=== PATIENT | female | born 1965 | race Two or more races ===

== ENCOUNTER → 2019-04-11 | Outpatient (CLI) | payer OTHER | END | disposition home or self-care (01) | LOC: RAD 08:36 → MAMO-SONO 09:15 | DX: M19.91 Primary osteoarthritis, unspecified site (principal) ==

== ENCOUNTER 2021-01-20 14:23 | Outpatient (CLI) | payer OTHER ==
[~2021-01-20 14:23] MED LIST: FAMOT PO; LISINOP PO; METFOR PO; OMEPRA PO
== END 2021-01-20 14:24 | disposition home or self-care (01) ==
LOC: LAB 14:23
PROVIDERS: ATTEND Internal Medicine Cardiovascular Disease
DX: N39.0 Urinary tract infection, site not specified (principal)

== ENCOUNTER 2021-01-23 05:22 | Day surgery (SDC) | payer OTHER | END 2021-01-23 13:40 | disposition home or self-care (01) | LOC: CIR.AMB 05:22 | PROVIDERS: ATTEND Surgery | DX: L72.0 Epidermal cyst (principal); Z20.822 Contact with and (suspected) exposure to COVID-19 ==

== ENCOUNTER 2022-04-15 11:15 | Outpatient (CLI) | payer OTHER | END 2022-04-15 11:24 | disposition home or self-care (01) | LOC: EKG 11:15 | PROVIDERS: ATTEND Ophthalmology | DX: H25.011 Cortical age-related cataract, right eye (principal); Z98.41 Cataract extraction status, right eye; I11.9 Hypertensive heart disease without heart failure ==

== ENCOUNTER 2022-09-02 11:13 | Outpatient (CLI) | payer OTHER | END 2022-09-02 11:14 | disposition home or self-care (01) | LOC: LAB 11:13 → EKG 11:13 → LAB 11:14 | PROVIDERS: ATTEND Ophthalmology | DX: I11.9 Hypertensive heart disease without heart failure (principal) ==

== ENCOUNTER 2023-02-17 10:08 | Outpatient (CLI) | payer OTHER | END 2023-02-17 10:32 | disposition home or self-care (01) | LOC: TOM 10:08 | PROVIDERS: ATTEND Internal Medicine Cardiovascular Disease | DX: R51.9 Headache, unspecified (principal) ==